=== PATIENT | male | born 1975 | race Two or more races ===

== ENCOUNTER 2016-07-22 19:20 | Emergency (ER) | payer BC ==
[~2016-07-22] VITALS: Ht 177.8 cm; Wt 126.2 kg
[2016-07-22 19:24] VITALS: BP 136/88
[2016-07-22] MEDS ORDERED: LIDOCAINE 1%-EPI 1:100K, 20ML SQ ONE (20:00)
[2016-07-22] MEDS ORDERED: LIDOCAINE 1%, 20ML ONE (20:52)
[2016-07-22] MEDS ORDERED: OMEP-110 PO (21:41)
[2016-07-22] MEDS ORDERED: ATOR10TA9 PO (21:41)
[2016-07-22] MEDS ORDERED: LISI-170 PO (21:41)
== END 2016-07-22 22:35 | disposition home or self-care (01) ==
LOC: ED 22:21
DX: S81.012A Laceration without foreign body, left knee, initial encounter (principal); W19.XXXA Unspecified fall, initial encounter; Y93.89 Activity, other specified; Y92.59 Other trade areas as the place of occurrence of the external cause; Y99.9 Unspecified external cause status
CPT/HCPCS: 12032; 99284